=== PATIENT | male | born 2000 | race Caucasian/White ===

== ENCOUNTER 2022-04-06 08:15 | Emergency (ER) | payer OTHER ==
[~2022-04-06] VITALS: Ht 177.8 cm; Wt 100.0 kg
[2022-04-06 08:33] VITALS: TEMP 97.8
[2022-04-06 09:16] LABS: BASO # 0.1 K/mm3 (0.0-0.2); BASO % 0.7 % (0.0-2.0); EOS # 0.1 K/mm3 (0.0-0.7); GRAN # 5.5 K/mm3 (1.4-6.5); GRAN % 65.8 % (42.2-75.2); HEMATOCRIT 43.8 % (36.0-47.0); HEMOGLOBIN 15.8 g/dl (12.5-16.1); LYMPH # 1.9 K/mm3 (1.2-3.4); LYMPH % 22.9 % (20.0-51.0); MEAN CELL VOLUME 86 fl (80.0-95.0); MEAN CORPUSCULAR HEMOGLOBIN 31 pg (26-32); MEAN CORPUSCULAR HGB CONC 36 g/dl (33.0-37.0); MEAN PLATELET VOLUME 10.3 fl (7.4-10.4); MONO # 0.7 K/mm3 (0.1-0.6); MONO % 8.9 % (1.7-9.3); PLATELET COUNT 220 K/mm3 (130-400); RED BLOOD COUNT 5.09 M/mm3 (4.20-5.60); REDCELL DISTRIBUTION WIDTH-CV 12.1 % (11.5-14.5)
[2022-04-06 09:36] LABS: BILIRUBIN,TOTAL 0.8 mg/dL (0.2-1.2); CALCIUM 9.1 mg/dL (8.4-10.2); CREATININE, serum 1.18 mg/dL (0.72-1.25); POTASSIUM 4.8 mmol/L (3.5-4.5); TOTAL PROTEIN 6.9 gm/dL (6.2-8.1)
[2022-04-06 10:24] VITALS: BP 121/75; PULSE 78
== END 2022-04-06 10:33 | disposition home or self-care (01) ==
LOC: COL.ER 08:15
PROVIDERS: Family Medicine
DX: R51.9 Headache, unspecified (principal); Z20.822 Contact with and (suspected) exposure to COVID-19; Z28.310 Unvaccinated for COVID-19
CPT/HCPCS: J0780; J1885; J7120